=== PATIENT | male | born 1995 | race Caucasian/White ===

== ENCOUNTER 2021-05-12 00:18 | Emergency (ER) | payer MEDICAID ==
[~2021-05-12] VITALS: Ht 172.7 cm; Wt 64.4 kg
[2021-05-12 00:23] VITALS: BP 129/77
--- NOTE | 2021-05-12 00:26 | NUR ---
dr. Randy Prabhakar notified.
[2021-05-12] MEDS ORDERED: SILVER NITRATE APPLICATOR 1 EA BOX ONE (00:47)
[2021-05-12] MEDS ORDERED: GELATIN SPONGE,ABSORBABLE 1 SPONGE SPONGE TP ONE (00:48)
--- NOTE | 2021-05-12 01:04 | NUR ---
at bedside for cauterization
[2021-05-12] MEDS ORDERED: oxyCODONE/APAP (5/325 MG) 1 UDTAB TABLET ONE (03:02)
[2021-05-12] MEDS: oxyCODONE/APAP (5/325 MG) 1 UDTAB TABLET PO ONE (03:22)
--- NOTE | 2021-05-12 03:23 | NUR ---
Patient discharged to home in stable condition. Written and verbal after care instructions given. Patient verbalizes understanding of instruction.
--- NOTE | 2021-05-12 03:23 | NUR ---
Patient is picked up by brother.
== END 2021-05-12 03:24 | disposition home or self-care (01) ==
LOC: ER 00:20
DX: L05.01 Pilonidal cyst with abscess (principal); L76.22 Postprocedural hemorrhage of skin and subcutaneous tissue following other procedure; Z98.890 Other specified postprocedural states